=== PATIENT | male | born 1970 | race Caucasian/White ===

== ENCOUNTER 2018-04-25 10:54 | Emergency (ER) | payer OTHER ==
[2018-04-25 11:19] LABS: #Basophils 0.1 thou/uL (0.0-0.2); #Eosinphils 0.2 thou/uL (0.0-0.7); #Lymphocytes 2.8 thou/uL (1.20-3.40); #Monocytes 0.7 thou/uL (0.11-0.59); #Neutrophils 8.4 thou/uL (1.40-6.50); %Basophils 0.5 % (0.0-1.0); %Eosinophils 1.7 % (0.0-10.0); %Lymphocytes 23.2 % (21.0-51.0); %Monocytes 5.6 % (0.0-10.0); Hemoglobin 15.2 g/dL (14.0-18.0); Mean Corpuscular HGB CONC 36.3 g/dL (32.0-36.0); Mean Corpuscular Hemoglobin 32.2 pg (27.0-31.0); Mean Corpuscular Volume 88.6 fL (78.0-98.0); Mean Platelet Volume 7.1 fL (7.4-10.4); Platelet Count 203 thou/uL (130-400); RBC Distribution Width 12.1 % (11.5-14.5); Red Blood Cell (RBC) Count 4.73 mill/uL (4.70-6.10); White Blood Cell (WBC) Count 12.2 thou/uL (4.8-10.8)
--- NOTE | 2018-04-25 11:28 | RAD ---
AP CHEST: Indication: Chest pain. Comparison: None. FINDINGS: Cardiomediastinal silhouette is within normal limits. No acute osseous abnormality is evident. IMPRESSION: No acute cardiopulmonary abnormality. POS: [facility]
[2018-04-25 11:41] LABS: ALT (SGPT) 27 U/L (8-55); AST (SGOT) 18 U/L (5-34); Albumin 3.9 g/dL (3.5-5.0); Alkaline Phosphatase 62 U/L (40-150); Anion Gap 8 mmol/L (10-20); BUN (Urea Nitrogen) 14 mg/dL (8.9-20.6); Bilirubin, Total 0.3 mg/dL (0.2-1.2); CK (CPK) 167 U/L (30-200); Calc. Creatinine Clearance 0 mL/min (70-130); Carbon Dioxide 29 mmol/L (22-29); Chloride 105 mmol/L (98-107); Estimated GFR-MDRD Greater than 90; Globulin 2.5 g/dL (2.4-3.5); Glucose 170 mg/dL (70-105); Potassium 4.5 mmol/L (3.5-5.1); Protein, Total 6.4 g/dL (6.0-8.3); Sodium 137 mmol/L (136-145)
[2018-04-25 11:46] LABS: CKMB 4.8 ng/mL (0-6.6); Troponin I Less than 0.010 ng/mL (< 0.028)
== END 2018-04-25 13:40 | disposition home or self-care (01) ==
LOC: ERS 10:54
DX: T75.4XXA Electrocution, initial encounter (principal); E11.9 Type 2 diabetes mellitus without complications; F17.210 Nicotine dependence, cigarettes, uncomplicated; Z79.84 Long term (current) use of oral hypoglycemic drugs; Z79.899 Other long term (current) drug therapy; W86.8XXA Exposure to other electric current, initial encounter
CPT/HCPCS: 36415; 71045; 80053; 82550; 82553; 84484; 85025; 93005; G0390

== ENCOUNTER 2018-05-27 10:52 | Outpatient (CLI) | payer OTHER ==
--- NOTE | 2018-05-27 12:33 | RAD ---
RIGHT KNEE 4 VIEWS: HISTORY: Right knee pain. FINDINGS: No fracture, dislocation, or bony destruction is seen. Minimal degenerative changes are present. POS: [facility]
== END 2018-05-27 10:53 | disposition home or self-care (01) ==
LOC: SCSRAD 10:52
PROVIDERS: ATTEND Nurse Practitioner Family
DX: M25.561 Pain in right knee (principal); M17.11 Unilateral primary osteoarthritis, right knee

== ENCOUNTER 2018-06-04 15:29 | Outpatient (CLI) | payer OTHER ==
--- NOTE | 2018-06-05 10:09 | MRI ---
RIGHT KNEE MRI WITHOUT IV CONTRAST: History: 48-year-old male with history of right knee pain for five days. History of two prior knee surgeries. FINDINGS: There is evidence for some chondromalacia patella including a full thickness fissure and some subchon dral cystic changes. There is a small amount of knee joint fluid. There is an approximately 0.5 x 1.2 cm diameter probable ganglion cyst in the intercondylar notch between the ACL and PCL. Small amount of fluid within the popliteal fossa with some minimal caudal extension. There is considerable motion artifact on numerous sequences lowering the overall sensitivity of this study. Minimal intrameniscal degenerative signal, particularly of the medial meniscus with some slight free edge irregularity havi ng more of the appearance of some minimal fraying. Anterior and posterior cruciate ligaments, collate ral ligament complexes, and quadriceps and patellar tendons are intact. IMPRESSION: Minimal joint fluid. Evidence for chondromalacia patella. Small intercondylar notch ganglion cyst. De generative fraying of the medial meniscus. No evidence for other significant acute internal derangeme nt. POS: [facility]
== END 2018-06-04 15:30 | disposition home or self-care (01) ==
LOC: TBSIIMAG 15:29
PROVIDERS: ATTEND Orthopaedic Surgery
DX: M25.561 Pain in right knee (principal); M22.41 Chondromalacia patellae, right knee; M25.461 Effusion, right knee; M67.461 Ganglion, right knee; M23.303 Other meniscus derangements, unspecified medial meniscus, right knee